=== PATIENT | female | born 1960 | race African-American/Black ===

== ENCOUNTER 2020-06-19 11:36 | Emergency (ER) | payer BC, SELFPAY ==
--- NOTE | ~2020-06-19 | XR_ITS ---
EXAMINATION: XR knee RT 3V DATE: 06/19/2020 12:29 INDICATION: Right knee pain TECHNIQUE: AP, lateral and sunrise views of the right knee were obtained. COMPARISON: None. FINDINGS: Alignment is normal. No fracture. Moderate joint space narrowing the medial compartment. Small margie nal osteophytes in the lateral and patellofemoral compartments. Moderate-sized right knee joint effus ion. Soft tissues are otherwise unremarkable. IMPRESSION: 1. 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 2. Moderate-sized right knee joint effusion. Reviewed, dictated and finalized at location B. STUDY OBSERVER IMPRESSION: 1. Tricompartmental osteoarthritis is of moderate severity in the medial compar tment. 2. Moderate-sized right knee joint effusion.
--- NOTE | ~2020-06-19 | US_ITS ---
EXAMINATION: US venous doppler LE RT DATE: 06/19/2020 12:24 INDICATION: Right lower limb pain. TECHNIQUE: Grayscale ultrasound images without and with compression and Doppler ultrasound images of the right lower extremity veins were obtained. COMPARISON: None. FINDINGS: The visualized portions of right common femoral vein, profunda (deep) femoral vein, femoral vein, pop liteal vein, peroneal veins, posterior tibial veins, and greater saphenous vein outflow are patent. T here is a small Steve's cyst. IMPRESSION: 1. No deep venous thrombosis. 2. Small Steve's cyst. Reviewed, dictated and finalized at location A. NICAL SERVICES SPECIALIST
[2020-06-19 11:40] VITALS: BP 154/95; PULSE 93; RESP 16; TEMP 36.6; O2SAT 100
[2020-06-19] MEDS: KETOROLAC (*BKC) 60 MG/2 ML VIAL 30 MG IM (12:10)
--- NOTE | 2020-06-19 13:02 | ED.GENADULT ---
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 denies similar occurrence in the past does note history of arthritis pain is localized to the anterior and posterior aspect of the right knee patient on arrival in no distress Related Data Home Medications Medication Instructions Recorded Confirmed cyclobenzaprine 10 mg tablet 10 mg PO TID 02/19/20 losartan 50 mg tablet 50 mg PO DAILY 02/19/20 Allergies Allergy/AdvReac Type Severity Reaction Status Date / Time Penicillins Allergy Intermediate Unknown Verified 06/19/20 11:58 Review of Systems Review of Systems: All systems reviewed & are unremarkable except as noted in HPI and below PMFSH Past Medical History Medical History History of tumor (~2007) Family History Family History Mother , 63 Natural causes No problems noted. Father , 51 Fluid on lungs No problems noted. Social History Social History Smoking status: Never smoker Alcohol intake: current Drinks per week: 3 Substance use: never Exam Narrative: Exam Narrative: GENERAL: Well-appearing, obese, and in no acute distress. HEAD: Normocephalic, atraumatic. EYES: PERRLA and EOMI. ENT: Nares clear, no rhinorrhea or epistaxis. Mucous membranes moist. CHEST: Clear to auscultation. No respiratory distress. No wheezes rales or rhonchi HEART: Regular rate and rhythm. No murmur heard EXTREMITIES: Normal range of motion. No edema. Tenderness of the anterior and posterior aspect right knee minimal swelling SKIN: Warm, dry, no rash. NEURO: No focal deficits. Alert and oriented x3. Neurovascularly intact. Capillary refill less than 2 seconds PSYCH: Normal mood and affect. Course Course Emergency Course: Patient evaluated the emergency department felt appropriate for discharge home will be given orthopedic follow-up Vital Signs Vital signs: Vital Signs Temperature 97.9 F 06/19/20 11:40 Pulse Rate 93 06/19/20 11:40 Respiratory Rate 16 06/19/20 11:40 Blood Pressure 154/95 H 06/19/20 11:40 Pulse Oximetry 100 06/19/20 11:40 Temperature 97.9 F 06/19/20 11:40 Pulse Rate 93 06/19/20 11:40 Respiratory Rate 16 06/19/20 11:40 Blood Pressure 154/95 H 06/19/20 11:40 Pulse Oximetry 100 06/19/20 11:40 Medical Decision Making MDM Narrative Medical decision making narrative: Patients injury or pain is consistent with musculoskeletal etiology. No signs of neurological or vascular compromise on exam. Compartments and tisues are soft without signs of compartment syndrome. Pain is felt appropriate for further evaluation on an outpatient basis. Vital Signs Vital Signs: Vital Signs Temperature 97.9 F 06/19/20 11:40 Pulse Rate 93 06/19/20 11:40 Respiratory Rate 16 06/19/20 11:40 Blood Pressure 154/95 H 06/19/20 11:40 Pulse Oximetry 100 06/19/20 11:40 Temperature 97.9 F 06/19/20 11:40 Pulse Rate 93 06/19/20 11:40 Respiratory Rate 16 06/19/20 11:40 Blood Pressure 154/95 H 06/19/20 11:40 Pulse Oximetry 100 06/19/20 11:40 Imaging Data Radiologist's impression: ITS Impressions Venous Doppler Study 06/19/20 12:25 IMPRESSION: 1. No deep venous thrombosis. 2. Small Steve's cyst. Knee X-Ray 06/19/20 12:31 IMPRESSION: 1. 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 2. Moderate-sized right kne
[2020-06-19 13:31] VITALS: BP 150/93; PULSE 92; RESP 18; O2SAT 100
== END 2020-06-19 13:37 | disposition home or self-care (01) ==
PROVIDERS: Emergency Provider Emergency Medicine; PCP Emergency Medicine
DX: M17.11 Unilateral primary osteoarthritis, right knee (principal); M71.21 Synovial cyst of popliteal space [Baker], right knee
CPT/HCPCS: 73562; 93971; 96372; 99284; J1885

== ENCOUNTER 2020-09-22 10:50 | Outpatient (RCR) | payer BC, SELFPAY ==
--- NOTE | 2020-09-22 11:52 | PTOPEVAL ---
PHYSICAL THERAPY EVALUATION AND PLAN OF CARE Thank you for referring Hilary Goodwin to [facility].? The patient is scheduled to be seen for therapy? 2x/week for 5 weeks. Please review, sign, date and return this plan of care ROLDAN. I agree with and certify that the following plan of care is medically necessary. Referring Physician Date Attending Provider: Mateo Gil MD Evaluation Diagnosis right knee pain Onset 04/2020 Subjective Information States that when she sits for Query Text:As Reported By Patient/ a long time or is in a car for Family a long time there is a lot of pain in the knee. It will throb from the middle of the thigh to the middle of the lower leg. States that cold increases symptoms. Went to the ER and they found a small cyst and arthritis. Self Report Pain Assessment Right Knee(s) Reported Pain Level 5 Pain Description Aching,Throbbing Pain Frequency Chronic,Continuous Lowest Pain Intensity 2 Greatest Pain Intensity 8 Pain Aggravating Factors Sitting,Walking Other Pain Aggravating Factors bending Pain Behaviors None Interventions Used Interventions Used By Clinicians Exercise,Heat Pain Relief Interventions Used By Medication Patient Lower Extremity Range of Motion Knee Range of Motion Right Knee Flexion Range of Motion - Active 108 Knee Extension Range of Motion - Active -5 Query Text: Knee Range of Motion Comments left knee flexion: 121 deg Lower Extremity Muscle Strength Testing Hip Strength Left Hip Flexion Strength 5 Normal Hip Extension Strength 3+ Fair + Hip Abduction Strength 3+ Fair + Right Hip Flexion Strength 4+ Good + Hip Extension Strength 4 Good Hip Abduction Strength 4 Good Knee Strength Bilateral Knee Flexion Strength 5 Normal Knee Extension Strength 5 Normal Right Knee Flexion Strength 5 Normal Knee Extension Strength 4- Good - Muscle Length Testing Muscle Length Testing Blake Test Shortened Muscles Short (R) Iliopsoas,Short (L) Iliopsoas,Short (R) Rectus Femoris,Short (L) Rectus Femoris Right Prone Knee Flexor Muscle Length ( 85 degrees) Left Prone Knee Flexor Muscle Length ( 105 degrees) Palpation significant hypomobility of right patella on femur in
--- NOTE | 2020-09-30 08:54 | PCPTNOTE ---
Patient called & cancelled scheduled appointment this date due to having surgery.
--- NOTE | 2020-10-02 07:51 | PCPTNOTE ---
Patient called & cancelled scheduled appointments except for the last appointment. Her had lung surgery and she needs to care for him.
--- NOTE | 2020-10-28 12:55 | PCPTNOTE ---
Patient did not show up for scheduled appointment this date.
--- NOTE | 2020-10-28 12:56 | PTOPEVAL ---
Thank you for referring Hilary Goowdin to [facility].? The patient is scheduled to be seen for therapy? ____x/week for ___ weeks. Please review, sign, date and return this plan of care ROLDAN. I agree with and certify that the following plan of care is medically necessary. Referring Physician Date Admitting Provider: Attending Provider: Mateo Gil MD Referring Provider: *PT Outpatient Evaluation Start: 09/22/20 11:04 Freq: Status: Active Protocol: Document 09/22/20 11:04 SHEEBA (Rec: 09/22/20 11:43 SHEEBA [id number]) Therapy Assessment Status Assessment Status Assessment Status Evaluation Outpatient Past Medical History Neurological History Hx Neurological Disorders No Significant History Cardiovascular History Hx Hypertension Yes Respiratory History Hx Respiratory Disorders No Significant History Gastrointestinal History Hx Gastrointestinal Disorders No Significant History Genitourinary History Hx Genitourinary Disorders No Significant History Musculoskeletal History Hx Arthritis Yes Hematological History Hx Hematological Disorders No Significant History Endocrine History Hx Endocrine Disorders No Significant History HEENT History Hx HEENT Disorders No Significant History Integumentary History Hx Skin Disorders No Significant History Reproductive History Hx Post Menopausal Yes Psychosocial History Hx Psychiatric Disorders No Significant History Pain History History of Any Previous or Ongoing No Significant History Instance of Pain Anesthesia History Hx Anesthesia Reactions No Significant History Evaluation Information Problem Diagnosis right knee pain Onset 04/2020 Subjective Information States that when she sits for Query Text:As Reported By Patient/ a long time or is in a car for Family a long time there is a lot of pain in the knee. It will throb from the middle of the thigh to the middle of the lower leg. States that cold increases symptoms. Went to the ER and they found a small cyst and arthritis. Pain Assessment Timing of Pain Assessment Timing of Pain Assessment Assessment Pain Scale Pain Scale Used Numeric (1 - 10) Self Report Pain Assessment Right Knee(s) Reported Pain Level 5 Pain Description Aching,Throbbing Pain Frequency Chronic,Continuous Lowest Pain Intensity 2 Greatest Pain Intensity 8 Pain Aggravating Factors Sitting,Walking Other Pain Aggravating
--- NOTE | 2020-10-28 12:59 | PCPTNOTE ---
PHYSICAL THERAPY DISCHARGE NOTE Attending Provider: Mateo Gil MD Patient:Hilary Goodwin Date of :1960 Patient has not returned for any further treatments since 09/22/2020, therefore she will be discharged at this time. Patient?s initial visit was on 09/22/2020. She did call to cancel several of her appointments as she was taking care of her ; however, she did not return for remaining scheduled appointment. Thank you for referring this patient to [facility]. Please review, sign, date and return this discharge summary ROLDAN. I have been updated about the patient's current status and I agree with discharge from the above service at this time. Referring Physician Date
== END 2020-10-29 10:30 | disposition home or self-care (01) ==
LOC: ANHPT 10:50
PROVIDERS: PCP Emergency Medicine; Visit Provider Orthopaedic Surgery
DX: M17.11 Unilateral primary osteoarthritis, right knee (principal)
CPT/HCPCS: 97161

== ENCOUNTER 2020-12-17 10:24 | Emergency (ER) | payer BC, SELFPAY ==
--- NOTE | ~2020-12-17 | XR_ITS ---
EXAMINATION: XR chest 2V EXAM DATE: 12/17/2020 10:46 INDICATION: Cough and weakness. TECHNIQUE: Frontal and lateral projections of the chest obtained and reviewed. There is no prior julita dy for comparison. FINDINGS: Scattered regions of mid and lower lung zone ill-defined airspace disease, could be COVID p neumonia or other acute infectious process. Please clinically correlate. No pneumothorax or pleural e ffusion. Cardiomediastinal silhouette is normal. There are no osseous abnormalities identified. IMPRESSION: Bilateral scattered ill-defined opacities suspicious for pneumonia. Reviewed, dictated and finalized at location B.
[2020-12-17 10:37] VITALS: BP 128/81; PULSE 98; RESP 16; TEMP 36.7; O2SAT 95
[2020-12-17 10:59] VITALS: BP 128/81; PULSE 78; RESP 18; TEMP 36.7; O2SAT 99
--- NOTE | 2020-12-17 11:45 | ECG_ITS ---
Measurements Intervals [place] Rate: 85 P: 36 AR: 139 QRS: 3 QRSD: 94 T: 70 QT: 373 QTc: 446 Interpretive Statements SINUS RHYTHM WITH SINUS ARRHYTHMIA POSSIBLE LEFT ATRIAL ENLARGEMENT CONSIDER INFERIOR INFARCT, AGE INDETERMINATE BORDERLINE ST-T WAVE ABNORMALITY- HIGH LATERAL LEADS BASELINE ARTIFACT- I, II, III, AVR, AVL, AVF, V1-V6 ABNORMAL ECG Electronically Signed On 12-17-2020 13:03:19 CDT by Christopher Dalton D.O.
--- NOTE | 2020-12-17 12:01 | ED.URI ---
HPI - URI/Sore Throat General Chief Complaint: Upper Respiratory Infection Stated Complaint: Cough Time Seen by Provider: 12/17/20 11:00 Source: patient and RN notes reviewed Mode of arrival: ambulatory Limitations: no limitations History of Present Illness HPI Narrative: This is a 60 year old female who presents for evaluation of URI symptoms. Patient states she developed fatigue and cough on Tuesday. She also has runny nose and nasal congestion. She denies chest pain , sob, nausea, vomiting or diarrhea. Her is being evaluation of cough and body aches. She has been vaccinated for COVID. Related Data Allergies Allergy/AdvReac Type Severity Reaction Status Date / Time Penicillins Allergy Intermediate Unknown Verified 12/17/20 11:02 Review of Systems Review of Systems: All systems reviewed & are unremarkable except as noted in HPI and below Constitutional: Constitutional: Denies chills, Reports fatigue and Denies fever(s) ENT: Reports nasal congestion Cardiovascular: Cardiovascular: Denies chest pain Respiratory: Respiratory: Reports chest congestion, Reports cough and Denies dyspnea Gastrointestinal: Gastrointestinal: Denies abdominal pain, Denies diarrhea, Denies nausea and Denies vomiting [facility] Past Medical History Medical History (Updated 12/17/20 @ 13:23 by Afshan Rodriguez MD) History of tumor (~2007) HTN (hypertension) Family History Family History Mother , 63 Natural causes Hypertension Father , 51 Fluid on lungs Heart disease Grandparent Cancer Social History Social History Smoking packs per day: 0.25 Smoking cigarettes per day: 5.0 Years smoked: 30 Smoking pack-years: 7.50 Smoking status: Former smoker Tobacco type: cigarettes Smoking end date: 04/18/17 Alcohol intake: current Drinks per week: 3 Alcohol use details: Patient drinks 3 glasses of wine on the weekends Substance use: former Substance use type: crack/cocaine Exam Const: General: no acute distress and alert Orientation/consciousness: patient oriented x3 Eyes: EOM: EOMs intact bilaterally Chest: Chest palpation & inspection: normal inspection of the chest Resp: Effort & Inspection: normal respiratory effort and no retractions Auscultation: clear to auscultation bilaterally Cardio: Rate: regular rate Rhythm: regular rhythm Heart sounds: no murmurs GI: GI Palp: Yes Soft to palpation, No Tenderness to palpation present (GI) and No Guarding due to palpation present (GI) Auscultation: normal bowel sounds Skin: General skin exam: normal color Rashes: no rashes Neuro: General: patient oriented x3, moves all extremities and CN's II-XI intact bilaterally Extrem: General: normal to inspection Psych: Mental Status: mental status grossly normal Affect: normal affect Course Reevaluation(s) Reevaluation #1: Patient does not have any complaints other than fatigue. She is not hypoxic and oxygen saturation is remaining 99% even with activity. I have discussed findings of COVID with pneumonia. She is agreeable to discharge home but she was given strict return precautions. Date: 12/17/20 Time: 13:19 Vital Signs Vital signs: Vital Signs Temperature 98.0 F 12/17/20 10:37 Pulse Rate 98 12/17/20 10:37 Respiratory Rate 16 12/17/20 10:37 Blood Pressure 128/81 12/17/20 10:37 Pulse Oximetry 95 12/17/20 10:37 Temperature 98.0 F 12/17/20 10:59 Pulse Rate 77 12/17/20 12:55 Respiratory Rate 18 12/17/20 12:55 Blood Pressure 127/84 12/17/20 12:55 Pulse Oximetry 99 12/17/20 12:55 MDM - URI/Sore Throat Lab Data Attestation: I reviewed the patient's lab results. Result diagrams: 12/17/20 12:04 12/17/20 12:04 Labs: Lab Results 12/17/20 12/17/20 12/17/20 Range/Units 11:53 12:0
[2020-12-17 12:10] LABS: Basophils Percent Auto 0.3 % (0.2-1.2); Hematocrit 38.7 % (37.0-47.0); Hemoglobin 13.2 g/dL (12.0-15.0); Immature Granulocyte Absolute 0.01 K/mm3 (0.00-0.031); Immature Granulocyte Percent A 0.3 % (0-0.5); Lymphocytes Absolute Auto 0.88 K/mm3 (0.9-3.2); Lymphocytes Percent Auto 22.4 % (18.3-44.2); Mean Corpuscular HGB Conc 34.1 g/dl (32-36); Mean Corpuscular Hemoglobin 29.7 pg (26-34); Mean Platelet Volume 12.3 fl (7.4-10.4); Monocytes Absolute Auto 0.3 K/mm3 (0.1-0.6); Monocytes Percent Auto 6.6 % (2.6-8.5); Neutrophils Absolute Auto 2.8 K/mm3 (1.3-6.7); Neutrophils Percent Auto 70.4 % (45.5-73.1); Platelet Count Result 156 k/mm3 (150-375); Red Blood Count 4.45 M/mm3 (4.2-5.4); Red Cell Distribution Width 12.1 % (11.5-14.5); White Blood Count 3.9 K/mm3 (4.5-10.0)
[2020-12-17] MEDS: IBUPROFEN 400 MG TABLET 800 MG PO (12:22)
[2020-12-17 12:27] LABS: EDCOVIDSCREEN Positive (Negative)
[2020-12-17 12:44] LABS: Alanine Aminotransferase 28 U/L (4-35); Albumin Level 4.5 g/dL (3.5-5.1); Alkaline Phosphatase 117 U/L (38-126); Anion Gap 11 mmol/L (8-16); Aspartate Amino Transferase 39 U/L (14-36); Bilirubin,Total 0.2 mg/dL (0.2-1.3); Blood Urea Nitrogen 12 mg/dL (7-17); Carbon Dioxide 28 mmol/L (22-30); Chloride 96 mmol/L (98-107); Estimated CRCL calculation 90 ml/min; Estimated Glomerular Filt Rate > 60; Glucose 111 mg/dL (65-110); Potassium 3.7 mmol/L (3.4-5.0); Sodium 135 mmol/L (137-145)
[2020-12-17 12:51] LABS: CRP 5.1 mg/dL (<1.0)
[2020-12-17] MEDS: AZITHROMYCIN 250 MG TABLET 500 MG PO (12:54)
[2020-12-17 12:55] VITALS: BP 127/84; PULSE 77; RESP 18; O2SAT 99
== END 2020-12-17 13:39 | disposition home or self-care (01) ==
PROVIDERS: Emergency Provider General Practice; PCP Emergency Medicine
DX: U07.1 COVID-19 (principal); I10 Essential (primary) hypertension; Z87.891 Personal history of nicotine dependence; J12.82 Pneumonia due to coronavirus disease 2019
CPT/HCPCS: 36415; 71046; 80053; 82728; 85025; 86140; 87426; 87804; 93005; 99283; A9270; C9803

== ENCOUNTER 2021-01-16 01:21 | Day surgery (SDC) | payer BC, SELFPAY ==
[2021-01-06 11:11] VITALS: BMI 37.5
[2021-01-16 08:35] VITALS: BP 158/97; PULSE 91; RESP 20; TEMP 35.4; O2SAT 100; BMI 37.5
--- NOTE | 2021-01-16 08:39 | WPDANESEPPF ---
Anes - Initial Pre Proc Eval Procedure: Operation Date: 01/16/21 09:00 Proposed Procedures p Screening Colonoscopy - Leonard Hernández MD Date/Time: 01/16/21 08:39 Surgeon: Leonard Hernández MD Pre Op Diagnosis: neoplasm screening Z12.11 Patient Data Age: 60 Gender: F Height: 1.68 m Weight: 105.7 kg Last Vital Signs Temp 95.7 F L 01/16/21 08:35 Pulse 91 01/16/21 08:35 Resp 20 01/16/21 08:35 BP 158/97 H 01/16/21 08:35 Pulse Ox 100 01/16/21 08:35 Allergies Allergy/AdvReac Type Severity Reaction Status Date / Time Penicillins Allergy Severe Anaphylactic Verified 01/16/21 08:34 Shock Home Medications Medication Instructions Recorded Confirmed Type hydrochlorothiazide 12.5 mg capsule 12.5 mg PO DAILY #90 cap 06/09/20 01/06/21 Rx cholecalciferol (vitamin D3) 1,250 1,250 mcg PO WEEKLY #12 cap 06/17/20 01/06/21 Rx mcg (50,000 unit) capsule losartan 50 mg tablet 50 mg PO DAILY #90 tablet 08/20/20 01/06/21 Rx albuterol sulfate 90 mcg/actuation 1 inh INHALATION Q4-6H PRN #1 ea 10/24/20 01/06/21 Rx breath activated powder inhaler cyclobenzaprine 10 mg tablet See Rx Instructions .ROUTE 10/29/20 01/06/21 Rx .COMPLEX #90 tablet inhalational spacing device #10 ea 11/19/20 11/19/20 Rx fluticasone propionate 50 2 spray INTRANASAL DAILY #15.8 g 12/10/20 01/06/21 Rx mcg/actuation nasal spray,suspension albuterol sulfate 90 mcg/actuation 2 puff INHALATION QID PRN #6.7 g 12/17/20 01/06/21 Rx aerosol inhaler acetaminophen 500 mg tablet See Rx Instructions .ROUTE 12/30/20 01/06/21 Rx .COMPLEX #180 tablet dicyclomine 20 mg tablet 20 mg PO QID #120 tablet 12/30/20 01/06/21 Rx Patient hx anesthesia problems: none Family hx anesthesia problems: none Results Review: All pre-operative results and documents have been reviewed as part of the pre-operative evaluation. [facility] Past Medical History Medical History (Updated 12/18/20 @ 00:00 by Sophie Oropeza) History of tumor (~2007) HTN (hypertension) Family History Family History Mother , 63 Natural causes Hypertension Father , 51 Fluid on lungs Heart disease Grandparent Cancer Social History Social History Smoking packs per day: 0.5 Smoking cigarettes per day: 10.0 Years smoked: 20 Smoking pack-years: 10.00 Smoking status: Former smoker Tobacco type: cigarettes Smoking end date: 04/18/17 Alcohol intake: current Drinks per week: 3 Alcohol use details: Patient drinks 3 glasses of wine on the weekends Substance use: former Substance use type: crack/cocaine Living arrangements: with family Spiritual care concerns: No Anes - Eval Final PreProcedure Day of Procedure 01/16/21 08:39 Patient weight: obese Heart: regular rate and rhythm Lungs: clear to auscultation Airway: Mallampati scale class III Neurological: alert and oriented Last oral intake: >/= 8 hours ASA classification: III Emergent: no Anesthetic plan: proceed Anesthesia type and monitoring: general GIVS and standard monitoring Results Review: All pre-operative results and documents have been reviewed as part of the pre-operative evaluation. Informed Consent: The patient's anesthetic plan and its attendant risks and benefits were discussed with the patient/family/POA. Questions were solicited and answers provided to the satisfaction of the patient/family/POA.
[2021-01-16] MEDS: LACTATED RINGERS 1,000 ML 150 ML IV CONT (08:47)
--- NOTE | 2021-01-16 08:53 | PM.HPGS ---
History of Present Illness History of Present Illness Consent: Risks, benefits, and alternatives have been discussed and questions answered. Patient agrees to proceed with procedure. Chief complaint: neoplasm screening Z12.11 Narrative: Hilary Goodwin is a 60 year old female here for first screening colonoscopy Review of Systems Constitutional: Constitutional: Denies headache(s) and Denies weakness Eyes: Eyes: Denies blurry vision ENT: Reports Normal hearing present, Denies headache(s) and Denies neck pain Cardiovascular: Cardiovascular: Denies chest pain and Denies dyspnea Respiratory: Respiratory: Denies dyspnea Gastrointestinal: Gastrointestinal: Reports no additional gastrointestinal complaints Genitourinary: Genitourinary: Denies dysuria Musculoskeletal: Musculoskeletal: Denies neck pain Integumentary/Breasts: Skin/Breast: Denies dry skin Neurologic: Reports Normal hearing present, Denies headache(s) and Denies weakness Psychiatric: Psychiatric: Denies anxiety Endocrine: Endocrine: Denies change in body appearance Hematologic/Lymphatic: Hematologic/Lymphatic: Denies easy bleeding Allergic/Immunologic: Allergic/Immunologic: Denies urticaria PMFSH Past Medical History Medical History (Updated 12/18/20 @ 00:00 by Sophie Oropeza) History of tumor (~2007) HTN (hypertension) Family History Family History Mother , 63 Natural causes Hypertension Father , 51 Fluid on lungs Heart disease Grandparent Cancer Social History Social History Smoking packs per day: 0.5 Smoking cigarettes per day: 10.0 Years smoked: 20 Smoking pack-years: 10.00 Smoking status: Former smoker Tobacco type: cigarettes Smoking end date: 04/18/17 Alcohol intake: current Drinks per week: 3 Alcohol use details: Patient drinks 3 glasses of wine on the weekends Substance use: former Substance use type: crack/cocaine Living arrangements: with family Spiritual care concerns: No Meds Home Medications and Allergies Home Medications Medication Instructions Recorded Confirmed Type hydrochlorothiazide 12.5 mg capsule 12.5 mg PO DAILY #90 cap 06/09/20 01/06/21 Rx cholecalciferol (vitamin D3) 1,250 1,250 mcg PO WEEKLY #12 cap 06/17/20 01/06/21 Rx mcg (50,000 unit) capsule losartan 50 mg tablet 50 mg PO DAILY #90 tablet 08/20/20 01/06/21 Rx albuterol sulfate 90 mcg/actuation 1 inh INHALATION Q4-6H PRN #1 ea 10/24/20 01/06/21 Rx breath activated powder inhaler cyclobenzaprine 10 mg tablet See Rx Instructions .ROUTE 10/29/20 01/06/21 Rx .COMPLEX #90 tablet inhalational spacing device #10 ea 11/19/20 11/19/20 Rx fluticasone propionate 50 2 spray INTRANASAL DAILY #15.8 g 12/10/20 01/06/21 Rx mcg/actuation nasal spray,suspension albuterol sulfate 90 mcg/actuation 2 puff INHALATION QID PRN #6.7 g 12/17/20 01/06/21 Rx aerosol inhaler acetaminophen 500 mg tablet See Rx Instructions .ROUTE 12/30/20 01/06/21 Rx .COMPLEX #180 tablet dicyclomine 20 mg tablet 20 mg PO QID #120 tablet 12/30/20 01/06/21 Rx Allergies Allergy/AdvReac Type Severity Reaction Status Date / Time Penicillins Allergy Severe Anaphylactic Verified 01/16/21 08:34 Shock Vital Signs Vital Signs - 24 hr 01/16/21 08:35 Temperature 95.7 F L Pulse Rate 91 Respiratory Rate 20 Blood Pressure 158/97 H Pulse Oximetry 100 Exam Const: General: comfortable and no acute distress HENMT: General nose exam: Normal nares present Eyes: General: appearance normal, both eyes and all related structures Neck: Neck: no JVD Resp: Auscultation: clear to auscultation bilaterally Cardio: Rate: regular rate Rhythm: regular rhythm GI: Inspection: non-distended GI Palp: Yes Soft to palpation Skin: General skin exam: normal color Neuro: General: gait normal Speech:
[2021-01-16 09:14] VITALS: BP 147/90; PULSE 88; RESP 24; O2SAT 96
[2021-01-16 09:24] VITALS: BP 145/93; PULSE 78; RESP 23; O2SAT 100
[2021-01-16 09:34] VITALS: BP 148/96; PULSE 91; RESP 20; O2SAT 100
== END 2021-01-16 09:47 | disposition home or self-care (01) ==
PROVIDERS: PCP Emergency Medicine; Visit Provider Internal Medicine Gastroenterology
PROC: 0DJD8ZZ Inspection of Lower Intestinal Tract, Via Natural or Artificial Opening Endoscopic (ICD-10-PCS; CPT 45378; principal; 2021-01-16 09:00)
DX: Z12.11 Encounter for screening for malignant neoplasm of colon (principal); K57.30 Diverticulosis of large intestine without perforation or abscess without bleeding; K64.8 Other hemorrhoids; I10 Essential (primary) hypertension; Z87.891 Personal history of nicotine dependence; Z79.51 Long term (current) use of inhaled steroids; E66.9 Obesity, unspecified; Z68.37 Body mass index [BMI] 37.0-37.9, adult
CPT/HCPCS: 45378; J7120

== ENCOUNTER 2021-05-26 08:08 | Outpatient (CLI) | payer BC, SELFPAY ==
[2021-05-26 09:09] LABS: Alanine Aminotransferase 27 U/L (4-35); Albumin Level 4.4 g/dL (3.5-5.1); Alkaline Phosphatase 106 U/L (38-126); Anion Gap 4 mmol/L (8-16); Aspartate Amino Transferase 27 U/L (14-36); Bilirubin,Total 0.5 mg/dL (0.2-1.3); Blood Urea Nitrogen 16 mg/dL (7-17); Calcium 9.6 mg/dL (8.4-10.2); Carbon Dioxide 33 mmol/L (22-30); Chloride 103 mmol/L (98-107); Estimated Glomerular Filt Rate > 60; Glucose 117 mg/dL (65-110); Potassium 3.9 mmol/L (3.4-5.0); Sodium 140 mmol/L (137-145)
[2021-05-29 21:31] LABS: Vitamin D 1,25 (OH)2 Total 34 pg/mL (18-72); Vitamin D2 1,25 (OH)2 16 pg/mL; Vitamin D3 1,25 (OH)2 18 pg/mL
== END 2021-05-26 08:09 | disposition home or self-care (01) ==
LOC: ANHLAB 08:11
PROVIDERS: PCP Emergency Medicine; Visit Provider Emergency Medicine
DX: E55.9 Vitamin D deficiency, unspecified (principal); I10 Essential (primary) hypertension
CPT/HCPCS: 36415; 80053; 82652

== ENCOUNTER 2021-06-25 10:51 | Outpatient (CLI) | payer BC, SELFPAY ==
[2021-06-25 11:11] LABS: Basophils Percent Auto 0.8 % (0.2-1.2); Eosinophils Absolute Auto 0.1 K/mm3 (0-0.3); Eosinophils Percent Auto 2.5 % (0-4.4); Hematocrit 40.2 % (37.0-47.0); Hemoglobin 13.3 g/dL (12.0-15.0); Immature Granulocyte Absolute 0.01 K/mm3 (0.00-0.031); Immature Granulocyte Percent A 0.3 % (0-0.5); Lymphocytes Absolute Auto 1.36 K/mm3 (0.9-3.2); Lymphocytes Percent Auto 34.2 % (18.3-44.2); Mean Corpuscular HGB Conc 33.1 g/dl (32-36); Mean Corpuscular Volume 90.5 fl (80-100); Mean Platelet Volume 12.4 fl (7.4-10.4); Monocytes Absolute Auto 0.3 K/mm3 (0.1-0.6); Monocytes Percent Auto 6.8 % (2.6-8.5); Neutrophils Absolute Auto 2.2 K/mm3 (1.3-6.7); Neutrophils Percent Auto 55.4 % (45.5-73.1); Platelet Count Result 185 k/mm3 (150-375); Red Blood Count 4.44 M/mm3 (4.2-5.4); Red Cell Distribution Width 12.6 % (11.5-14.5)
[2021-06-25 11:24] LABS: Alanine Aminotransferase 27 U/L (4-35); Albumin Level 4.4 g/dL (3.5-5.1); Alkaline Phosphatase 100 U/L (38-126); Anion Gap 6 mmol/L (8-16); Aspartate Amino Transferase 32 U/L (14-36); Bilirubin,Total 0.4 mg/dL (0.2-1.3); Blood Urea Nitrogen 20 mg/dL (7-17); Calcium 9.4 mg/dL (8.4-10.2); Carbon Dioxide 32 mmol/L (22-30); Chloride 102 mmol/L (98-107); Estimated Glomerular Filt Rate > 60; Glucose 117 mg/dL (65-110); Potassium 3.8 mmol/L (3.4-5.0); Rheumatoid Factor < 8.6 IU/ML (<12); Sodium 140 mmol/L (137-145)
[2021-06-29 05:14] LABS: Vitamin D 1,25 (OH)2 Total 53 pg/mL (18-72); Vitamin D2 1,25 (OH)2 23 pg/mL; Vitamin D3 1,25 (OH)2 30 pg/mL
== END 2021-06-25 10:52 | disposition home or self-care (01) ==
LOC: ANHLAB 10:53
PROVIDERS: PCP Emergency Medicine; Visit Provider Emergency Medicine
DX: E55.9 Vitamin D deficiency, unspecified (principal); I10 Essential (primary) hypertension; R53.83 Other fatigue; Z01.84 Encounter for antibody response examination; Z11.59 Encounter for screening for other viral diseases
CPT/HCPCS: 36415; 80053; 82652; 85025; 86038; 86430

== ENCOUNTER 2021-07-23 11:13 | Outpatient (CLI) | payer BC, SELFPAY ==
[2021-07-23 12:35] LABS: Hemoglobin A1C 5.5 % (<5.7)
== END 2021-07-23 11:14 | disposition home or self-care (01) ==
PROVIDERS: PCP Emergency Medicine; Visit Provider Emergency Medicine
DX: R73.09 Other abnormal glucose (principal); Z01.84 Encounter for antibody response examination
CPT/HCPCS: 36415; 83036; 86769